=== PATIENT | female | born 1945 | race Caucasian/White ===

== ENCOUNTER 2022-06-25 11:37 | Emergency (ER) | payer OTHER ==
[~2022-06-25] VITALS: Ht 152.4 cm; Wt 59.4 kg
[2022-06-25 12:17] VITALS: BP 145/70
[2022-06-25] MEDS ORDERED: ACETAMINOPHEN EXTRA STRENGTH 500 MG TAB PO ONE (12:30)
--- NOTE | 2022-06-25 12:40 | NUR ---
PT C/O LEFT FOOT AND KNEE PAIN S/P FALL YESTERDAY. DENIES LOC.
[2022-06-25] MEDS ORDERED: WALK1EAC MC (14:10)
--- NOTE | 2022-06-25 14:41 | NUR ---
TAD WRAP APPLIED TO L KNEE. + CMS
--- NOTE | 2022-06-25 15:22 | NUR ---
Patient discharged with v/s stable. Written and verbal after care instructions given and explained. Patient verbalized understanding. Wheel Chair Assisted with steady gait. All questions addressed prior to discharge. Advised to follow up with PMD.
== END 2022-06-25 14:39 | disposition home or self-care (01) ==
LOC: MED 11:37
DX: S83.92XA Sprain of unspecified site of left knee, initial encounter (principal); S93.402A Sprain of unspecified ligament of left ankle, initial encounter; W18.30XA Fall on same level, unspecified, initial encounter; Y93.89 Activity, other specified; Y92.89 Other specified places as the place of occurrence of the external cause; Y99.8 Other external cause status
CPT/HCPCS: 73562; 73610; 73630; 99284; Q0092

== ENCOUNTER 2022-11-25 14:46 | Inpatient (IN) | payer OTHER ==
[~2022-11-25] VITALS: Ht 154.9 cm; Wt 60.3 kg
[~2022-11-25 14:46] MED LIST: WALK1EAC MC
[2022-11-25 14:53] VITALS: BP 129/73
--- NOTE | 2022-11-25 15:00 | NUR ---
here for rt earlobe erythema, swelling and pain. no distress noted
[2022-11-25 15:27] LABS: HEMATOCRIT 35.3 % (36-48); HEMOGLOBIN 11.6 g/dL (12.0-16.0); MEAN CORPUSCULAR HEMOGLOBIN 28 pg (27-31); MEAN CORPUSCULAR HGB CONC 33 g/dL (33-37); MEAN CORPUSCULAR VOLUME 86.4 fL (80-94); PLATELET COUNT (AUTO) 337 K/uL (140-450); RED BLOOD CELL COUNT(AUTO) 4.08 MIL/uL (4.20-5.40); WHITE BLOOD COUNT (AUTO) 13.7 K/uL (4.8-10.8)
[2022-11-25 15:34] LABS: ANION GAP 12.9 (8-16); CARBON DIOXIDE 26.2 mmol/L (21-32); CHLORIDE 106 mmol/L (98-107); CREATININE 0.7 mg/dL (0.6-1.3); GLUCOSE 116 mg/dL (74-106); POTASSIUM 4.1 mmol/L (3.5-5.1); SODIUM SERUM 141 mmol/L (136-145); UREA NITROGEN, BLOOD 16 mg/dL (7-18)
[2022-11-25 15:48] LABS: LYMPHOCYTES % (MANUAL) 30 % (20-46); MONOCYTES % (MANUAL) 40 % (5-12)
[2022-11-25] MEDS ORDERED: AMPICILLIN/SULBACTAM 3 GM in NACL 0.9% 100 ML IV ONE (16:15)
[2022-11-25] MEDS ORDERED: AMPICILLIN/SULBACTAM 3 GM VIAL ONE (16:20)
[2022-11-25] MEDS ORDERED: LISI-486 PO (16:45)
[2022-11-25] MEDS ORDERED: ACETAMINOPHEN 325 MG TAB PO PRN (17:10)
[2022-11-25] MEDS ORDERED: ONDANSETRON 4 MG/2 ML VIAL IVP PRN (17:10)
[2022-11-25] MEDS ORDERED: MAGNESIUM OXIDE 400 MG TAB PO PRN (17:10)
[2022-11-25] MEDS ORDERED: POTASSIUM CHLORIDE 10 MEQ TABER PO PRN (17:10)
[2022-11-25] MEDS ORDERED: ZOLPIDEM 5 MG TAB PO PRN (17:10)
[2022-11-25] MEDS: NACL 0.9% 1,000 ML IV SCH (17:10)
[2022-11-25] MEDS ORDERED: MORPHINE SULFATE 4 MG/ML SYR IVP PRN (17:10)
[2022-11-25] MEDS ORDERED: HYDROcodone/APAP 5/325 MG 1 TAB TAB PO PRN (17:10)
[2022-11-25] MEDS ORDERED: PIPERACILLIN/TAZOBACTAM 3.375 GM VIAL IV ONE ×2 (18:35→23:45)
[2022-11-25] MEDS: PIPERACILLIN/TAZOBACTAM 3.375 GM in DEXTROSE 5% 50 ML IV SCH ×2 (18:37→23:51)
--- NOTE | 2022-11-25 20:00 | NUR ---
PT RESTING IN BED WITH HOB ELEVATED. 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 DAUGHTER AT BEDISDE. PT IS ADMITED TO TELE. BED ASSIG PENDING. A&OX4 RESP EVEN AND UNLABORED. DENIES PAIN AT THIS TIME. VS WNL. PT IS GEORGIAN SPEAKING ONLY. PUREWIC IN PLACE
--- NOTE | 2022-11-25 21:07 | NUR ---
Called Telemetry Unit to give report. Spoke to Suzie, receiving nurse, and gave report regarding patient's case.
--- NOTE | 2022-11-25 21:09 | NUR ---
Note mikael in ED - 11/26/22 at 0032 by MNSASKIA Patient will be admitted to care of . Admited to TELE. Will go to [id number]. Belongings list completed. Report to Mally.
--- NOTE | 2022-11-25 21:13 | NUR ---
RT AT BEDSIDE.
--- NOTE | 2022-11-25 21:18 | NUR ---
Tx STARTED AND PER PT REQUEST Tx WAS STOPPED PT REFUSING Tx AT THIS TIME CURRENT SPO2 97% ON RA AND CLR BS NO DISTRESS NOTED AT THIS TIME WILL CONTINUE TO MONITOR
--- NOTE | 2022-11-25 21:20 | NUR ---
Patient will be admitted to care of DR NUÑEZ. Admited to TELE. Will go to [id number]. Belongings list completed. Report to NESSA.
[2022-11-25] MEDS: ALBUTEROL SULFATE/IPRATROPIU 3 ML SOL IH SCH (21:22)
--- NOTE | 2022-11-25 21:35 | NUR ---
PT WAS ADMITTED TO [facility] FROM [facility] WITH DIAGNOSIS OF RIGHT EAR CELLULITIS. PT IS AOX4, AMBULATORY WITH ASSIST, BULGARIAN SPEAKING, ABLE TO VERBALIZE NEEDS AND ABLE TO FOLLOW COMMANDS. PT IS ON ROOM AIR AND ON CARDIAC DIET. PT HAS PUREWICK AND HAS IV ON ON LEFT AC GAUGE 20 RUNNING WITH NS AT 80ML/HR. PT SKIN IS INTACT BUT PT HAS ERYTHEMA AND SWELLING THERESE RIGHT EARLOBE. PT WAS ORIENTED TO ROOM/HOSPITAL, BED BUTTON, AND CALL LIGHT. ALL SAFETY MEASURES IMPLEMENTED. BED IN LOW POSITION, BED WHEELS ON LOCK AND CALL LIGHT WITHIN REACH.
--- NOTE | 2022-11-25 23:51 | NUR ---
SCHEDULED AND PRESCRIBED MEDICATION WAS GIVEN TO PT PER MD JENKINS. NO COMPLAIN OF PAIN AT THIS TIME AND NO S/S OF RESPIRATORY DISTRESS NOTED. ALL SAFETY MEASURES IMPLEMENTED. BAD WHEELS ON LOCK, BED IN LOW POSITION AND CALL LIGHT WITHIN REACH.
[2022-11-26] VITALS: BP 110/45
[2022-11-26] MEDS: ALBUTEROL SULFATE/IPRATROPIU 3 ML SOL IH SCH ×2 (01:00→07:00)
--- NOTE | 2022-11-26 02:00 | NUR ---
PT WAS GIVEN WARM BLANKET. NO COMPLAIN OF PAIN AT THIS TIME. NO S/S OF RESPIRATORY DISTRESS NOTED. ALL SAFETY MEASURES IMPLEMENTED. BED IN LOW POSITION, BED WHEELS ON LOCK AND CALL LIGHT WITHIN REACH.
[2022-11-26 04:00] VITALS: BP 104/48
--- NOTE | 2022-11-26 04:00 | NUR ---
MORNING CARE WAS DONE TO PT. CHANGED GOWN, CHUCKS, LINENS AND EMPTY CANISTER OF PUREWICK. NO COMPLAIN OF PAIN. NO S/S OF RESPIRATORY DISTRESS NOTED. ALL SAFETY MEASURES IMPLEMENTED. BED IN LOW POSITION, BED WHEELS ON LOCK AND CALL LIGHT WITHIN REACH.
[2022-11-26] MEDS ORDERED: PIPERACILLIN/TAZOBACTAM 3.375 GM VIAL IV ONE (05:01)
[2022-11-26] MEDS: PIPERACILLIN/TAZOBACTAM 3.375 GM in DEXTROSE 5% 50 ML IV SCH ×3 (05:31→17:09)
--- NOTE | 2022-11-26 05:31 | NUR ---
SCHEDULED AND PRESCRIBED MEDICATION WAS GIVEN TO PT PER MD ORDER. ALL SAFETY MEASURES IMPLEMENTED. BED IN LOW POSITION, BED WHEELS ON LOCK AND CALL LIGHT WITHIN REACH.
[2022-11-26] MEDS: NACL 0.9% 1,000 ML IV SCH ×2 (05:51→18:10)
--- NOTE | 2022-11-26 07:08 | NUR ---
PT IS STABLE. ENDORSED PT TO MORNING SHIFT NURSE FOR CONTINUITY OF CARE.
--- NOTE | 2022-11-26 07:08 | NUR ---
ASSUMED CONTINUITY OF CARE. INITIAL ASSESSMENT DONE. REDNESS AND SWOLLEN RIGHT EAR NOTED. NO C/O PAIN. KEEP COMFORTABLE ON BED. CALL LIGHT WITHIN REACH.
[2022-11-26 07:38] LABS: HEMATOCRIT 34.1 % (36-48); HEMOGLOBIN 11.2 g/dL (12.0-16.0); MEAN CORPUSCULAR HEMOGLOBIN 29 pg (27-31); MEAN CORPUSCULAR HGB CONC 33 g/dL (33-37); PLATELET COUNT (AUTO) 303 K/uL (140-450); RED BLOOD CELL COUNT(AUTO) 3.92 MIL/uL (4.20-5.40); RED CELL DISTRIBUTION WIDTH 13.8 % (11.6-13.7); WHITE BLOOD COUNT (AUTO) 11.4 K/uL (4.8-10.8)
[2022-11-26 07:47] LABS: CARBON DIOXIDE 26.8 mmol/L (21-32); CHLORIDE 111 mmol/L (98-107); CREATININE 0.7 mg/dL (0.6-1.3); GLUCOSE 97 mg/dL (74-106); POTASSIUM 3.8 mmol/L (3.5-5.1); SODIUM SERUM 144 mmol/L (136-145); UREA NITROGEN, BLOOD 14 mg/dL (7-18)
[2022-11-26 08:00] VITALS: BP 123/57
[2022-11-26 08:18] LABS: BASOPHILS % (MANUAL) 0 % (0-2); EOSINOPHILS % (MANUAL) 3 % (0-4); LYMPHOCYTES % (MANUAL) 27 % (20-46); MONOCYTES % (MANUAL) 49 % (5-12)
--- NOTE | 2022-11-26 08:20 | NUR ---
LOC AWAKE AND ALERT NO DISTRESS NOTED PATIENT WITH BREAKFAST TRAY AT THIS TIME OPTOMETRIST OWNER TO ATTEMPT HHN THERAPY AT A LATER TIME DAUGHTER IN ROOM
--- NOTE | 2022-11-26 08:53 | NUR ---
PT. WENT TO BATHROOM WITH ASSISTANCE FROM PT. DAUGHTER -LAMIN. TOLERATED WELL. NO SOB, NOTED.
--- NOTE | 2022-11-26 08:55 | NUR ---
PATIENT HAS BEEN SCREENED AND CATEGORIZED LOW NUTRITION RISK. PATIENT WILL BE SEEN WITHIN 7 DAYS OF ADMISSION. 11/25/22-12/02/[address]
--- NOTE | 2022-11-26 09:43 | NUR ---
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 CHLOÉ NUÑEZ
--- NOTE | 2022-11-26 10:29 | NUR ---
DR. NUÑEZ CAME AND SPOKE TO PT. AND PT. DAUGHTER -LAMIN AT BEDSIDE.
--- NOTE | 2022-11-26 10:45 | NUR ---
DR. CHLOÉ NUÑEZ ROUNDING IN ICU; NOTED AT 0943 REVIEWED HHN THERAPY ORDER VORBO DR. NUÑEZ: OKAT TO CHANGE TO PRN
[2022-11-26] MEDS ORDERED: ALBUTEROL SULFATE/IPRATROPIU 3 ML SOL IH PRN (11:00)
[2022-11-26 12:00] VITALS: BP 115/57
--- NOTE | 2022-11-26 19:20 | NUR ---
REPORT GIVEN TO DARIA ASMAYOA. IN STABLE CONDITION.
--- NOTE | 2022-11-26 19:21 | NUR ---
RECEIVED ENDORSEMENT FROM DAY SHIFT NURSE FOR CONTINUITY OF CARE. PT IS AWAKE, ALERT AND VERBALLY RESPONSIVE IN HEBREW. PT IS WITH PURWICK. IV IS INTACT AND PATENT ON LEFT AC. IV FLUID NORMAL SALINE IS INFUSING WELL AT 80 ML/HR. PT IS ON STABLE CONDITION.
[2022-11-26 20:00] VITALS: BP 129/48
--- NOTE | 2022-11-26 20:30 | NUR ---
ASSIST WITH PERSONAL HYGIENE. PT IS ABLE TO STAND INDEPENDENTLY WITH SUPERVISION, NOTED WEAK.
--- NOTE | 2022-11-26 22:00 | NUR ---
PT IS STABLE AND ASLEEP.
--- NOTE | 2022-11-27 01:30 | NUR ---
PT IS SLEEPING.
--- NOTE | 2022-11-27 03:00 | NUR ---
PT IS SLEEPING, AROUSABLE ON STIMULI.
[2022-11-27 04:00] VITALS: BP 110/52
[2022-11-27] MEDS: PIPERACILLIN/TAZOBACTAM 3.375 GM in DEXTROSE 5% 50 ML IV SCH ×4 (05:21→05:28)
[2022-11-27] MEDS: NACL 0.9% 1,000 ML IV SCH (06:40)
[2022-11-27 07:08] LABS: BASOPHILS # (AUTO) 0.1 K/uL (0.00-0.22); BASOPHILS % (AUTO) 0.7 % (0.0-2.0); EOSINOPHILS # (AUTO) 0.1 K/uL (0-0.4); EOSINOPHILS % (AUTO) 0.8 % (0.0-4.0); HEMATOCRIT 33.8 % (36-48); HEMOGLOBIN 11.1 g/dL (12.0-16.0); LYMPHOCYTES # (AUTO) 2.7 K/uL (2.5-16.5); LYMPHOCYTES % (AUTO) 22.5 % (20.5-51.1); MEAN CORPUSCULAR HEMOGLOBIN 29 pg (27-31); MEAN CORPUSCULAR HGB CONC 33 g/dL (33-37); MEAN CORPUSCULAR VOLUME 87.1 fL (80-94); MONOCYTES # (AUTO) 5.4 K/uL (0.8-1.0); MONOCYTES % (AUTO) 44.3 % (1.7-9.3); NEUTROPHILS # (AUTO) 3.9 K/uL (1.8-7.7); NEUTROPHILS % (AUTO) 31.7 % (42.2-75.2); PLATELET COUNT (AUTO) 306 K/uL (140-450); RED BLOOD CELL COUNT(AUTO) 3.88 MIL/uL (4.20-5.40); RED CELL DISTRIBUTION WIDTH 13.9 % (11.6-13.7); WHITE BLOOD COUNT (AUTO) 12.2 K/uL (4.8-10.8)
--- NOTE | 2022-11-27 07:12 | NUR ---
RECEIVED REPORT FROM OFFICE WORKER FOR CONTINUITY OF CARE. INITIAL ASSESSMENT DONE. ALERT AND ORIENTED X 4. RESP. EVEN AND UNLABORED. IVF INFUSING WELL. NO C/O PAIN OR DISCOMFORT. CALL LIGHT KEPT WITHIN REACH. WILL CONTINUE TO MONITOR.
--- NOTE | 2022-11-27 07:15 | NUR ---
PT IS ON STABLE CONDITION, NO SOB OR DISTRESS. NO FACIAL GRIMACING. NECESSARY SAFETY MEASURES ARE IN PLACE. ENDORSED TO DAY SHIFT NURSE SMOOTH FOR CONTINUITY OF CARE.
[2022-11-27 07:20] LABS: ANION GAP 11.3 (8-16); CARBON DIOXIDE 26.3 mmol/L (21-32); CHLORIDE 113 mmol/L (98-107); CREATININE 0.7 mg/dL (0.6-1.3); GLUCOSE 96 mg/dL (74-106); POTASSIUM 3.6 mmol/L (3.5-5.1); SODIUM SERUM 147 mmol/L (136-145); UREA NITROGEN, BLOOD 9 mg/dL (7-18)
[2022-11-27 08:00] VITALS: BP 126/67
--- NOTE | 2022-11-27 08:00 | NUR ---
Patient's Plan of Care was discussed and reviewed with PNEUMATIC SYSTEMS OPERATOR: SMOOTH
--- NOTE | 2022-11-27 09:55 | NUR ---
SCHEDULED HEPARIN SQ WAS GIVEN. TOLERATING WELL.
--- NOTE | 2022-11-27 13:10 | NUR ---
SEEN BY DR. NASSAR.
[2022-11-27] MEDS ORDERED: AMOX1TAB8 PO (13:12)
[2022-11-27] MEDS ORDERED: CIPR7.5S OT (13:12)
--- NOTE | 2022-11-27 14:15 | NUR ---
PT LEFT. DISCHARGE TO HOME. TRANSPORTED BY PRIVATE VEHICLE PER WHEELCHAIR. ID BAND AND IV REMOVED. DISCHARGED PAPERWORKS DISCUSS AND SIGNED BY PT. PERSONAL BELONGINGS TAKEN. REMAINS STABLE.
--- NOTE | 2022-12-05 09:09 | NUR ---
CALLED DR JAUREGUI'S OFFICE LOCATED AT [address] [address]. SPOKE WITH MAGDY WHO WAS ABLE TO INFORM ME PATIENT HAD A FOLLOW UP APPOINTMENT FOR 11/30/2022 AT 0901.
== END 2022-11-27 14:15 | disposition home or self-care (01) | DRG 720 ==
LOC: MED 14:46 → MTU 17:12
PROVIDERS: ADMIT Student in an Organized Health Care Education/Training Program; ATTEND Student in an Organized Health Care Education/Training Program
DX: A41.9 Sepsis, unspecified organism (principal); E11.9 Type 2 diabetes mellitus without complications; H60.91 Unspecified otitis externa, right ear; E78.5 Hyperlipidemia, unspecified; E86.1 Hypovolemia; I10 Essential (primary) hypertension; Z20.822 Contact with and (suspected) exposure to COVID-19; H66.91 Otitis media, unspecified, right ear; Z91.041 Radiographic dye allergy status
CPT/HCPCS: 36415; 70450; 80048; 85025; 87040; 87081; 96365; 99285; J0295; J1644; J2543; J7060

== ENCOUNTER 2023-08-11 20:25 | Emergency (ER) | payer OTHER ==
[~2023-08-11] VITALS: Ht 157.5 cm; Wt 56.7 kg
[~2023-08-11 20:25] MED LIST changes: +AMOX1TAB8 PO; +CIPR7.5S OT; +LISI-486 PO
[2023-08-11 21:09] VITALS: BP 116/66; PULSE 57; RESP 18; TEMP 98.4; O2SAT 96
[2023-08-11] MEDS ORDERED: cefTRIAXone 1,000 MG in LIDOCAINE MPF 1% 2.1 ML IM ONE (21:35)
[2023-08-11] MEDS ORDERED: AMOX1TAB8 PO (21:37)
[2023-08-11 21:43] VITALS: BP 116/66; PULSE 65; RESP 18; TEMP 98.4; O2SAT 98
[2023-08-11] MEDS ORDERED: cefTRIAXone 1,000 MG VIAL ONE (22:15)
[2023-08-11] MEDS ORDERED: LIDOCAINE MPF 1% 5 ML ONE (22:16)
== END 2023-08-11 21:43 | disposition home or self-care (01) ==
LOC: MED 20:25
DX: S61.411A Laceration without foreign body of right hand, initial encounter (principal); I10 Essential (primary) hypertension; Z79.899 Other long term (current) drug therapy; W54.0XXA Bitten by dog, initial encounter; Y93.89 Activity, other specified; Y92.89 Other specified places as the place of occurrence of the external cause; Y99.8 Other external cause status
CPT/HCPCS: 96372; 99283; J0696; J2001